=== PATIENT | female | born 1985 | race Caucasian/White ===

== ENCOUNTER 2020-08-01 11:06 | Inpatient (IN) | payer BC ==
[2020-08-01] MEDS ORDERED: Sodium Chloride 0.9% 10 ML Syringe FLUSH PRN (11:51)
[2020-08-01] MEDS ORDERED: Nalbuphine 10 MG/1 ML Vial IVPUSH PRN (11:51)
[2020-08-01] MEDS ORDERED: Ondansetron 4 MG/2 ML SDV IVPUSH PRN ×2 (11:51→13:47)
[2020-08-01] MEDS ORDERED: Ampicillin 2 GM in Sodium Chloride 0.9% 100 ML IV ONE (12:00)
[2020-08-01] MEDS ORDERED: Oxytocin/Lactated Ringers 10 UNIT/1,000 ML BAG IV SCH ×2 (12:00)
[2020-08-01] MEDS: Lactated Ringers 1,000 ML IV SCH ×5 (12:30→20:00)
--- NOTE | 2020-08-01 12:49 | PCM.LDHP ---
L&D History of Present Illness - General Date of Service: 08/01/20 Admit Problem/Dx: Patient Status Order with Admit Dx/Problem 08/01/20 11:21 Patient Status [ADT] Routine 08/01/20 11:51 Patient Status [ADT] Routine Admission Diagnosis/Problem Admission Diagnosis/Problem Source of Information: Patient History Limitations: Reports: No Limitations - History of Present Illness Introduction:: Queenie Tesfaye is a GBS + A+ 35 year old x 1 for breech presentation x 1 female at 38-6 weeks gestation age (GRETA 08/09/20) by early US and LMP who presents today for signs of labor. She reports contractions that began at 0645 that have been increasing in strength and frequency. She reports bloody show, but denies rodger bleeding. She denies leaking of fluid. Present Illness Comments:: Queenie Tesfaye is a GBS + A+ 35 year old x 1 for breech presentation x 1 female at 38-6 weeks gestation age (GRETA 08/09/20) by early US and LMP who presents today for signs of labor. Patient has received routine care and denies any complications during her . She received the Tdap vaccine on 06/02/20 and her flu vaccie 03/08/20. OBGYN History 03/31/15: with vaccum extraction following induction due to preeclampsia; male infant weighing 7 lbs 0 ounces, "Omid" 11/20/18: for breech presentation following failed cephalic version with tight nuchal cord and true knot. Female weighing 8 lbs 15 ounces, "Mejia" G3: current labs: Blood type: A+ Antibody screen: Negative Rubella status: immune Hepatitis B surface antigen: unknown RPR: negative HIV: negative Gonorrhea: Negative Chlamydia: negative Anatomy US: 03/10/20 with follow up 04/08/20 Normal growth, BRAD, placental position, anatomy One hour glucose tolerance test: 82 Second trimester hematocrit/hemoglobin: 12.6 Platelets: 341,000 GBS status: positive - Related Data Allergies/Adverse Reactions: Allergies Allergy/AdvReac Type Severity Reaction Status Date / Time No Known Allergies Allergy Verified 08/01/20 11:21 Home Medications: Home Meds Acetaminophen/oxyCODONE [Percocet 325-5 MG] 2 tab PO Q4H PRN tablet 11/22/18 [Rx] Ibuprofen [Motrin] 800 mg PO Q8H PRN tablet 11/22/18 [Rx] Pnv No.95/Ferrous Fum/Folic AC [Prenavite Tablet] 1 each PO DAILY #100 tablet 11/22/18 [Rx] Past Medical History - Past Health History Medical/Surgical History: Denies 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: Social & Family History - Family History Family Medical History: No Pertinent Family History - Caffeine Use Caffeine Use: Reports: None H&P Review of Systems - Review of Systems: Review Of Systems: See Below General: Reports: No Symptoms HEENT: Reports: No Symptoms Pulmonary: Reports: No Symptoms Cardiovascular: Reports: No Symptoms Gastrointestinal: Reports: No Symptoms Genitourinary: Reports: No Symptoms Musculoskeletal: Reports: No Symptoms Skin: Reports: No Symptoms Psychiatric: Reports: No Symptoms Neurological: Reports: No Symptoms L&D Exam - Exam Exam: See Below - Vital Signs Vital Signs: Last Vital Signs Temp 98.3 F 08/01/20 11:21 Pulse 80 08/01/20 11:21 Resp 16 08/01/20 11:21 BP 141/80 H 08/01/20 11:21 Pulse Ox 99 08/01/20 11:21 Weight: 223 lb - OB Specific Contraction Intensity: Moderate to Strong Movement: Active Heart Tones: Present - Bender Score Bender Score Cervix Position: Midposition Bender Score Consistency: Soft Bender Score Effacement: >80% Bender Score Dilation: 3-4 cm Bender Score 's Station: -2 Bender Score Total: 9 - Exam General: Alert, Oriented HEENT: Conjunctiva Clear, EOMI Lungs: Clear to Auscultation, Normal Respiratory Effort Cardiovascular: Regular Rate, Regular Rhythm GI/Abdominal Exam: Normal Bowel Sounds, Soft Genitourinary: Normal external exam Extremities: Normal Inspection, No Pedal Edema, Normal Capillary Refill Skin: Warm, Dry, Intact Psychiatric: Alert, Normal Affect, Normal Mood - Patient Data Lab Results Last 24 hrs: Laboratory Results - last 24 hr 08/01/20 Range/Units 12:12 WBC 13.44 H (3.98-10.04) K/mm3 RBC 4.07 (3.98-5.22) M/mm3 Hgb 12.1 (11.2-15.7) gm/dl Hct 36.2 (34.1-44.9) % MCV 88.9 D (79.4-94.8) fl MCH 29.7 (25.6-32.2) pg MCHC 33.4 (32.2-35.5) g/dl RDW Std Deviation 46.4 H (36.4-46.3) fL Plt Count 219 D (182-369) K/mm3 MPV 10.5 (9.4-12.3) fl Neut % (Auto) 85.2 H (34.0-71.1) % Lymph % (Auto) 8.0 L (19.3-51.7) % [place] % (Auto) 6.0 (4.7-12.5) % Eos % (Auto) 0.2 L (0.7-5.8) Baso % (Auto) 0.1 (0.1-1.2) % Neut # (Auto) 11.45 H (1.56-6.13) K/mm3 Lymph # (Auto) 1.08 L (1.18-3.74) K/mm3 [place] # (Auto) 0.80 H (0.24-0.36) K/mm3 Eos # (Auto) 0.03 L (0.04-0.36) K/mm3 Baso # (Auto) 0.01 (0.01-0.08) K/mm3 Manual Slide Review Abnormal smear Result Diagrams: 08/01/20 12:12 - Problem List (1) 38 weeks gestation of SNOMED Code(s): 99561720 ICD Code: Z3A.38 - 38 WEEKS GESTATION OF Status: Acute Current Visit: Yes (2) Group B streptococcal carriage complicating SNOMED Code(s): 821613088730887 ICD Code: O99.820 - STREPTOCOCCUS B CARRIER STATE COMPLICATING Status: Acute Current Visit: Yes (3) History of pre-eclampsia SNOMED Code(s): 596567118810896 ICD Code: Z87.59 - PERSONAL HISTORY OF COMP OF PREG, CHLDBRTH AND THE PUERP Status: Acute Current Visit: Yes (4) History of SNOMED Code(s): 135460865 ICD Code: Z98.891 - HISTORY OF UTERINE SCAR FROM PREVIOUS SURGERY Status: Acute Current Visit: Yes Problem List Initiated/Reviewed/Updated: Yes Orders Last 24hrs: Active Orders 24 hr Category Date Time Status Patient Status [ADT] Routine ADT 08/01/20 11:51 Active Activity as Tolerated [RC] PFP Care 08/01/20 11:51 Active Communication Order [RC] ASDIRECTED Care 08/01/20 11:51 Active Heart Tones [RC] ASDIRECTED Care 08/01/20 11:51 Active Non Stress Test [RC] PER UNIT ROUTINE Care 08/01/20 11:21 Active Notify Provider [RC] PFP Care 08/01/20 11:51 Active Notify Provider [RC] PRN Care 08/01/20 11:51 Active Peripheral IV Care [RC] . DIRECTED Care 08/01/20 11:51 Active Pump Management, Intrathecal [RC] ASDIRECTED Care 08/01/20 11:52 Active Vital Signs [RC] PER UNIT ROUTINE Care 08/01/20 11:21 Active Vital Signs [RC] PER UNIT ROUTINE Care 08/01/20 11:51 Active Regular Diet [DIET] Diet 08/01/20 Lunch Active CORONAVIRUS COVID-19 WENDY [MOLEC] Stat Lab 08/01/20 12:15 Received HEP C VIRUS AB [REF] Stat Lab 08/01/20 12:12 Received RAPID PLASMA REAGIN,RPR [CHEM] Routine Lab 08/01/20 12:12 Received TYPE AND SCREEN [BBK] Stat Lab 08/01/20 12:12 Received Ampicillin 1 gm Med 08/01/20 16:00 Active Sodium Chloride 0.9% [Normal Saline] 100 ml IV Q4H Lactated Ringers [Ringers, Lactated] 1,000 ml Med 08/01/20 12:00 Active IV ASDIRECTED Nalbuphine [Nubain] Med 08/01/20 11:51 Active 10 mg IVPUSH Q2H PRN Ondansetron [Zofran] Med 08/01/20 11:51 Active 4 mg IVPUSH Q4H PRN Oxytocin/Lactated Ringers [Pitocin in LR 10 Units/1,000 Med 08/01/20 12:00 Active ML] 10 unit in 1,000 ml IV .CONTINUOUS Oxytocin/Lactated Ringers [Pitocin in LR 10 Units/1,000 Med 08/01/20 12:00 Active ML] 10 unit in 1,000 ml IV TITRATE Sodium Chloride 0.9% [Saline Flush] Med 08/01/20 11:51 Active 10 ml FLUSH ASDIRECTED PRN Electronic Heart Tones Ext w TOCO [WOMSER] Oth 08/01/20 11:51 Ordered Routine Electronic Heart Tones Internal [WOMSER] Per Unit Oth 08/01/20 11:51 Ordered Routine Peripheral IV Insertion Adult [OM.PC] Routine Oth 08/01/20 11:51 Ordered Resuscitation Status Routine Resus Stat 08/01/20 11:21 Ordered Medication Orders Lactated Ringer's (Ringers, Lactated) 1,000 mls @ 100 mls/hr IV ASDIRECTED BLNACA Last Admin: 08/01/20 12:30 Dose: 100 mls/hr Documented by: DECKAMB Ampicillin Sodium 1 gm/ Sodium (Chloride) 100 mls @ 200 mls/hr IV Q4H BLANCA Oxytocin/Lactated Ringer's (Pitocin In Lr 10 Units/1,000 Ml) 10 unit in 1,000 mls @ 12 mls/hr IV TITRATE BLANCA; Protocol Oxytocin/Lactated Ringer's (Pitocin In Lr 10 Units/1,000 Ml) 10 unit in 1,000 mls @ 500 mls/hr IV .CONTINUOUS BLANCA Nalbuphine HCl (Nalbuphine 10 Mg/1 Ml Vial) 10 mg IVPUSH Q2H PRN PRN Reason: Pain Ondansetron HCl (Ondansetron 4 Mg/2 Ml Sdv) 4 mg IVPUSH Q4H PRN PRN Reason: Nausea/Vomiting Sodium Chloride (Sodium Chloride 0.9% 10 Ml Syringe) 10 ml FLUSH ASDIRECTED PRN PRN Reason: Keep Vein Open Assessment/Plan Comment:: Queenie Tesfaye is a GBS + A+ 35 year old x 1 for breech presentation x 1 female at 38-6 weeks gestation age (GRETA 08/09/20) by early US and LMP who presents today for signs of labor. Patient desires a TOLAC. AROM was performed; scant blood tinged fluid noted. Mother and baby tolerated the procedure well. 1. Active labor - desires TOLAC. Risks and benefits discussed with patient. Head position confirmed with bedside US. Augmentation of labor with AROM and Pitocin as indicated 2. GBS + - 2 mg ampicillin loading dose with 1 mg q 4 hours 3. A+ with negative antibody screen 4. Rubella immune 5. Continuous monitoring 6. Activity as tolerated 7. Small amounts of regular diet 8. Pain management as patient desires 9. Plans to breastfeed 10. Anticipate vaginal delivery unless otherwise indicated
[2020-08-01] MEDS ORDERED: fentaNYL 100 MCG/2 ML SDV EPIDUR PRN (13:47)
--- NOTE | 2020-08-01 13:49 | PCM.PREANE ---
Preanesthetic Assessment - Procedure Proposed Procedure: Epidural - Anesthesia/Transfusion/Family Hx Anesthesia History: Prior Anesthesia Without Reaction Family History of Anesthesia Reaction: No Transfusion History: No Prior Transfusion(s) Intubation History: Unknown - Review of Systems General: No Symptoms Pulmonary: No Symptoms Cardiovascular: No Symptoms (History of preeclampsia) Gastrointestinal: No Symptoms (GERD) Neurological: No Symptoms Other: Reports: None - Physical Assessment NPO Status Date: 08/01/20 NPO Status Time: 08:00 Vital Signs: Last Vital Signs Temp 36.8 C 08/01/20 11:21 Pulse 80 08/01/20 11:21 Resp 16 08/01/20 11:21 BP 141/80 H 08/01/20 11:21 Pulse Ox 99 08/01/20 11:21 Height: 1.6 m Weight: 101.151 kg ASA Class: 3 Mental Status: Alert & Oriented x3 Airway Class: Mallampati = 2 Dentition: Reports: Normal Dentition, Caries Thyro-Mental Finger Breadths: 3 Mouth Opening Finger Breadths: 3 ROM/Head Extension: Full Lungs: Clear to Auscultation, Normal Respiratory Effort Cardiovascular: Regular Rate, Regular Rhythm, No Murmurs - Lab Values: Laboratory Last Values WBC 13.44 K/mm3 (3.98-10.04) H 08/01/20 12:12 RBC 4.07 M/mm3 (3.98-5.22) 08/01/20 12:12 Hgb 12.1 gm/dl (11.2-15.7) 08/01/20 12:12 Hct 36.2 % (34.1-44.9) 08/01/20 12:12 MCV 88.9 fl (79.4-94.8) D 08/01/20 12:12 MCH 29.7 pg (25.6-32.2) 08/01/20 12:12 MCHC 33.4 g/dl (32.2-35.5) 08/01/20 12:12 RDW Std Deviation 46.4 fL (36.4-46.3) H 08/01/20 12:12 Plt Count 219 K/mm3 (182-369) D 08/01/20 12:12 MPV 10.5 fl (9.4-12.3) 08/01/20 12:12 Neut % (Auto) 85.2 % (34.0-71.1) H 08/01/20 12:12 Lymph % (Auto) 8.0 % (19.3-51.7) L 08/01/20 12:12 [place] % (Auto) 6.0 % (4.7-12.5) 08/01/20 12:12 Eos % (Auto) 0.2 (0.7-5.8) L 08/01/20 12:12 Baso % (Auto) 0.1 % (0.1-1.2) 08/01/20 12:12 Neut # (Auto) 11.45 K/mm3 (1.56-6.13) H 08/01/20 12:12 Lymph # (Auto) 1.08 K/mm3 (1.18-3.74) L 08/01/20 12:12 [place] # (Auto) 0.80 K/mm3 (0.24-0.36) H 08/01/20 12:12 Eos # (Auto) 0.03 K/mm3 (0.04-0.36) L 08/01/20 12:12 Baso # (Auto) 0.01 K/mm3 (0.01-0.08) 08/01/20 12:12 Manual Slide Review Abnormal smear 08/01/20 12:12 SARS-CoV-2 RNA (WENDY) Negative (NEGATIVE) 08/01/20 12:15 Blood Type A POSITIVE 08/01/20 12:12 Gel Antibody Screen Negative 08/01/20 12:12 Above labs reviewed and noted and within acceptable ranges to proceed with epidural if desired. 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: 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: Reports: Depression Other 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: after first baby Endocrine/Metabolic History: Reports: Obesity/BMI 30+ - SUBSTANCE USE Tobacco Use Status *Q: Never Tobacco User Second Hand Smoke Exposure: No Recreational Drug Use History: No - HOME MEDS Home Medications: Home Meds Acetaminophen/oxyCODONE [Percocet 325-5 MG] 2 tab PO Q4H PRN tablet 11/22/18 [Rx] Ibuprofen [Motrin] 800 mg PO Q8H PRN tablet 11/22/18 [Rx] Pnv No.95/Ferrous Fum/Folic AC [Prenavite Tablet] 1 each PO DAILY #100 tablet 11/22/18 [Rx] - CURRENT (IN HOUSE) MEDS Current Meds: Current Medications Lactated Ringer's (Ringers, Lactated) 1,000 mls @ 100 mls/hr IV ASDIRECTED BLANCA Last Infusion: 08/01/20 13:31 Dose: 0 mls/hr Documented by: Ampicillin Sodium 1 gm/ Sodium (Chloride) 100 mls @ 200 mls/hr IV Q4H BLANCA Oxytocin/Lactated Ringer's (Pitocin In Lr 10 Units/1,000 Ml) 10 unit in 1,000 mls @ 12 mls/hr IV TITRATE BLANCA; Protocol Oxytocin/Lactated Ringer's (Pitocin In Lr 10 Units/1,000 Ml) 10 unit in 1,000 mls @ 500 mls/hr IV .CONTINUOUS BLANCA Nalbuphine HCl (Nalbuphine 10 Mg/1 Ml Vial) 10 mg IVPUSH Q2H PRN PRN Reason: Pain Ondansetron HCl (Ondansetron 4 Mg/2 Ml Sdv) 4 mg IVPUSH Q4H PRN PRN Reason: Nausea/Vomiting Sodium Chloride (Sodium Chloride 0.9% 10 Ml Syringe) 10 ml FLUSH ASDIRECTED PRN PRN Reason: Keep Vein Open Discontinued Medications Ampicillin Sodium 2 gm/ Sodium (Chloride) 100 mls @ 200 mls/hr IV ONETIME ONE Stop: 08/01/20 12:29 Last Admin: 08/01/20 12:30 Dose: 200 mls/hr Documented by:
[2020-08-01] MEDS ORDERED: Bupivacaine/fentaNYL/NS 100 ML Bag EPIDUR SCH (14:00)
[2020-08-01] MEDS: ePHEDrine 50 MG/ML SDV IVPUSH PRN ×3 (14:41→15:16)
[2020-08-01] MEDS: Ampicillin 1 GM in Sodium Chloride 0.9% 100 ML IV SCH ×2 (16:40→20:00)
[2020-08-01] MEDS ORDERED: Bupivacaine 0.25% 10 ML SDV ONE (17:00)
[2020-08-01] MEDS ORDERED: ePHEDrine 50 MG/ML SDV ONE (17:00)
--- NOTE | 2020-08-01 18:30 | PCM.SN.2 ---
- Free Text/Narrative Note: Anesthesia Note: ([id number]) Placement of epidural 17 gauge tuohy resulted in wet tap. Catheter advanced and secured at 12 cm. Negative test dose noted, bolus of 5ml's of 0.25% marcaine given with negative aspiration, and negative heme. Patient responded with excellent pain control. Motor control lost on right leg, diminished but present on left leg. Patient B/P decreased to 60's systolic with ephedrine and phenylephrine administered and B/P returned to 110's/ 40-50's. Nurse instructed to maintain mean B/P at 70. No Spinal catheter infusion initiated. Nurse/and patient instructed to contact anesthesia for a spinal catheter rebolus if warranted. Patient and educated on inadvertent dural puncture and educated on potential need for blood patch in the event a post dural puncture headache presents itself. Post Delivery: Spinal catheter dc'd, tip in tact. Patient encouraged to drink caffeinated b everages, and IV ketorlac ordered per Dr. Porter. Anesthesia will continue to assess and check in on patient in the event a spinal headache occurs and a blood patch is warranted. Thank you, More CARLOS
--- NOTE | 2020-08-01 20:13 | PCM.SN.2 ---
- Free Text/Narrative Note: Anesthesia Note: Start: 1954 Stop: 1999 Patient dilated to 9cm. Patient c/o pain 01/20. Patient requests spinal catheter (inadvertent) rebolused for pain control. 2ml's of 1.5% lidocaine with 1:200,000 epi with 3ml's of 0.25% bupivacaine administered. Patient received excellent pain relief. 200mcg of phenylephrine given for symptomatic hypotension systolic in the 80's. Blood pressure returned to 110's and patient resting comfortably. Thank you, More CARLOS
[2020-08-01] MEDS ORDERED: Lidocaine 1% 50 ML MDV ONE (21:06)
--- NOTE | 2020-08-01 22:42 | PCM.SN.2 ---
- Free Text/Narrative Note: Queenie Tesfaye is a GBS + A+ 35 year old [id number] of x 1, for breech presentation x 1 female at 38-6 weeks gestation age (GRETA 08/09/20) by early US and LMP who presents today for signs of labor. She reports contractions that began at 0645 that have been increasing in strength and frequency. Babies heart tones were reassuring with contractions occurring every 3 to 5 minutes. She progressed steadily towards complete dilation. She had an epidural placed for labor analgesia with fair results. There were questions as to whether this was a wet tap. Patient became complete and pushed for approximately 30 minutes. She delivered a viable, sow, male with Apgars of 7 and 9, a weight of 4290 g (9 pounds 7.3 ounces) and a length of 22.0 inches at 2102 hrs. on 08/01/2020.. The patient had a moderate shoulder dystocia and the anterior shoulder was delivered with moderate posterior motion of the anterior shoulder, along with a sweeping finger movement bring the anterior shoulder forward. This was further accompanied by suprapubic pressure offered by labor and delivery nurse Carol. With this baby delivered was placed on mom's abdomen. The cord was clamped x2 and cut by the baby's Father Nghia. Patient was noted to have a second-degree perineal laceration. IV Pitocin was increased to 500 cc an hour per with Pitocin solution per protocol to facilitate increase in uterine tone and decrease likelihood of bleeding. Nose and mouth were bulb suction and the baby was taken to the warmer for further evaluation and resuscitation. The baby spontaneously cried and actually pinked up very well. No positive pressure ventilation was necessary. The placenta delivered in a Meek presentation at 2109 hrs., appeared intact and complete and was discarded per patient desire. The umbilical cord had 3 vessels present within it. The second-degree perineal laceration area was infiltrated with lidocaine 1% approximately 15 cc. I was then sutured in a routine fashion using 3-0 Monocryl suture. Patient tolerated this well. Patient plans to breast-feed. Estimated blood loss was 350 cc. Condition: Good.
[2020-08-01] MEDS ORDERED: Ketorolac 30 MG/ML SDV IVPUSH ONE ×2 (22:44→23:11)
[2020-08-01] MEDS ORDERED: Docusate Sodium 100 MG Cap PO PRN (23:11)
[2020-08-01] MEDS ORDERED: Benzocaine/Menthol 20%-0.5% Spray 56 GM Canister TOP PRN (23:11)
[2020-08-01] MEDS ORDERED: Acetaminophen 325 MG Tab PO PRN (23:11)
[2020-08-01] MEDS ORDERED: Witch Hazel Medicated Pads 40/Jar TOP PRN (23:11)
[2020-08-02] MEDS ORDERED: Lactated Ringers 1,000 ML IV SCH (01:00)
[2020-08-02] MEDS ORDERED: Lidocaine 1% 20 ML MDV INJECT ONE (01:06)
--- NOTE | 2020-08-02 01:28 | PCM.SN.2 ---
- Free Text/Narrative Note: Anesthesia Note: (Blood Patch) Start: 0143 Stop: 224 Patient presents with PDPH that is positional and patient requests treatment relief via blood patch. Risk/Benefits discussed, consent signed. Patient sitting up for procedure. (Sterile technique noted with sterile gloves, mask, and sterile drapes utilized) -Back cleansed with 3 betadine swabs. -L3-L4 Site localized with 4ml's of 1% lidocaine. -17 g tuohy epidural needle advanced with MARGARET noted at 6.5 cm. -20ml's of autologous blood obtained from patient with strict aseptic/sterile technique noted. -20ml's of autologous blood injected via epidural needle. Patient positioned supine and instructed to lay flat for 2 hours, and continue to rest for the remaining part of night. Patient encouraged to rest tomorrow as well, with minimal exertion and movement encouraged. Thank you, More CARLOS
[2020-08-02] MEDS ORDERED: Lidocaine 1% 8 ML ONE (02:42)
[2020-08-02] MEDS: Ibuprofen 600 MG Tab PO PRN ×4 (04:43→21:38)
--- NOTE | 2020-08-02 07:35 | PCM48HPAN ---
Post Anesthesia Note - EVALUATION WITHIN 48HRS OF ANESTHETIC Vital Signs in Normal Range: Yes Patient Participated in Evaluation: Yes Respiratory Function Stable: Yes Airway Patent: Yes Cardiovascular Function Stable: Yes Hydration Status Stable: Yes Pain Control Satisfactory: Yes Nausea and Vomiting Control Satisfactory: Yes Mental Status Recovered: Yes Vital Signs: Last Vital Signs Temp 36.9 C 08/02/20 02:24 Pulse 92 08/02/20 02:24 Resp 16 08/02/20 02:24 BP 124/69 08/02/20 02:24 Pulse Ox 98 08/02/20 02:24 - COMMENTS/OBSERVATIONS Free Text/Narrative:: Queenie developed a positional headache following a known post dural puncture for epidural placement. Blood patch was administered at 0143 last evening. She was able to get some rest last evening. She did get up this morning and noticed the headache but did feel like it was better than before the blood patch. Education provided for Queenie to dink lots of fluids today, try caffeine to help with the headache, tylenol/motrin, and rest when possible. We will continue to monitor for improvement in headache symptoms. Questions answered at this time.
--- NOTE | 2020-08-02 10:21 | PCM.PNPP ---
- General Info Date of Service: 08/02/20 Subjective Update: No complaints of headache. Doing well. Some cramping. Nursing well. - Review of Systems General: Reports: No Symptoms HEENT: Reports: No Symptoms Pulmonary: Reports: No Symptoms Cardiovascular: Reports: No Symptoms Gastrointestinal: Reports: No Symptoms Genitourinary: Reports: No Symptoms Musculoskeletal: Reports: No Symptoms Skin: Reports: No Symptoms Neurological: Reports: No Symptoms Psychiatric: Reports: No Symptoms - General Info Date of Service: 08/02/20 - Patient Data Vital Signs - Most Recent: Last Vital Signs Temp 36.9 C 08/02/20 02:24 Pulse 92 08/02/20 02:24 Resp 16 08/02/20 02:24 BP 124/69 08/02/20 02:24 Pulse Ox 98 08/02/20 02:24 Weight - Most Recent: 101.151 kg I&O - Last 24 Hours: Intake & Output 08/01/20 08/02/20 08/02/20 22:59 06:59 14:59 Intake Total 6300 Output Total 1100 458 Balance -1100 5842 Lab Results - Last 24 Hours: Laboratory Results - last 24 hr 08/01/20 08/01/20 08/01/20 Range/Units 12:12 12:12 12:12 WBC 13.44 H (3.98-10.04) K/mm3 RBC 4.07 (3.98-5.22) M/mm3 Hgb 12.1 (11.2-15.7) gm/dl Hct 36.2 (34.1-44.9) % MCV 88.9 D (79.4-94.8) fl MCH 29.7 (25.6-32.2) pg MCHC 33.4 (32.2-35.5) g/dl RDW Std Deviation 46.4 H (36.4-46.3) fL Plt Count 219 D (182-369) K/mm3 MPV 10.5 (9.4-12.3) fl Neut % (Auto) 85.2 H (34.0-71.1) % Lymph % (Auto) 8.0 L (19.3-51.7) % [place] % (Auto) 6.0 (4.7-12.5) % Eos % (Auto) 0.2 L (0.7-5.8) Baso % (Auto) 0.1 (0.1-1.2) % Neut # (Auto) 11.45 H (1.56-6.13) K/mm3 Lymph # (Auto) 1.08 L (1.18-3.74) K/mm3 [place] # (Auto) 0.80 H (0.24-0.36) K/mm3 Eos # (Auto) 0.03 L (0.04-0.36) K/mm3 Baso # (Auto) 0.01 (0.01-0.08) K/mm3 Manual Slide Review Abnormal smear RPR Non-reactive (NONREACTIVE) SARS-CoV-2 RNA (WENDY) (NEGATIVE) Blood Type A POSITIVE Gel Antibody Screen Negative 08/01/20 Range/Units 12:15 WBC (3.98-10.04) K/mm3 RBC (3.98-5.22) M/mm3 Hgb (11.2-15.7) gm/dl Hct (34.1-44.9) % MCV (79.4-94.8) fl MCH (25.6-32.2) pg MCHC (32.2-35.5) g/dl RDW Std Deviation (36.4-46.3) fL Plt Count (182-369) K/mm3 MPV (9.4-12.3) fl Neut % (Auto) (34.0-71.1) % Lymph % (Auto) (19.3-51.7) % [place] % (Auto) (4.7-12.5) % Eos % (Auto) (0.7-5.8) Baso % (Auto) (0.1-1.2) % Neut # (Auto) (1.56-6.13) K/mm3 Lymph # (Auto) (1.18-3.74) K/mm3 [place] # (Auto) (0.24-0.36) K/mm3 Eos # (Auto) (0.04-0.36) K/mm3 Baso # (Auto) (0.01-0.08) K/mm3 Manual Slide Review RPR (NONREACTIVE) SARS-CoV-2 RNA (WENDY) Negative (NEGATIVE) Blood Type Gel Antibody Screen Med Orders - Current: Current Medications Acetaminophen (Acetaminophen 325 Mg Tab) 650 mg PO Q4H PRN PRN Reason: mild pain or fever Benzocaine/Menthol (Benzocaine/Menthol 20%-0.5% [place] 56 Gm Canister) 0 gm TOP ASDIRECTED PRN PRN Reason: Perineal Comfort Measure Last Admin: 08/01/20 23:23 Dose: 1 can Documented by: Docusate Sodium (Docusate Sodium 100 Mg Cap) 100 mg PO BID PRN PRN Reason: Constipation Lactated Ringer's (Ringers, Lactated) 1,000 mls @ 100 mls/hr IV ASDIRECTED [facility] Last Admin: 08/02/20 01:24 Dose: 100 mls/hr Documented by: Ibuprofen (Ibuprofen 600 Mg Tab) 600 mg PO Q4H PRN PRN Reason: Mild pain or fever Last Admin: 08/02/20 10:18 Dose: 600 mg Documented by: Doron Gregg (Doron Gregg Medicated Pads 40/Jar) 1 pad TOP ASDIRECTED PRN PRN Reason: Perineal Comfort Measure Last Admin: 08/01/20 23:24 Dose: 1 tub Documented by: Discontinued Medications Ephedrine Sulfate (Ephedrine 50 Mg/Ml Sdv) 5 mg IVPUSH ASDIRECTED PRN PRN Reason: Hypotension Last Admin: 08/01/20 15:16 Dose: 5 mg Documented by: Fentanyl (Fentanyl 100 Mcg/2 Ml Sdv) 100 mcg EPIDUR Q3H PRN PRN Reason: Pain Last Admin: 08/01/20 14:03 Dose: 100 mcg Documented by: Fentanyl/Bupivacaine HCl (Bupivacaine/Fentanyl/Ns 100 Ml Bag) 100 ml EPIDUR ASDIRECTED [facility] Last Admin: 08/01/20 14:03 Dose: 100 ml Documented by: Lactated Ringer's (Ringers, Lactated) 1,000 mls @ 100 mls/hr IV ASDIRECTED [facility] Last Admin: 08/01/20 20:00 Dose: 125 mls/hr Documented by: Ampicillin Sodium 2 gm/ Sodium (Chloride) 100 mls @ 200 mls/hr IV ONETIME ONE Stop: 08/01/20 12:29 Last Admin: 08/01/20 12:30 Dose: 200 mls/hr Documented by: Ampicillin Sodium 1 gm/ Sodium (Chloride) 100 mls @ 200 mls/hr IV Q4H [facility] Last Admin: 08/01/20 20:00 Dose: 200 mls/hr Documented by: Oxytocin/Lactated Ringer's (Pitocin In Lr 10 Units/1,000 Ml) 10 unit in 1,000 mls @ 12 mls/hr IV TITRATE BLANCA; Protocol Oxytocin/Lactated Ringer's (Pitocin In Lr 10 Units/1,000 Ml) 10 unit in 1,000 mls @ 500 mls/hr IV .CONTINUOUS BLANCA Last Admin: 08/01/20 21:02 Dose: 500 mls/hr Documented by: Lidocaine HCl (Xylocaine-Mpf 1%) Confirm Administered Dose 8 mls @ as directed .ROUTE .STK-MED ONE Stop: 08/02/20 02:43 Ketorolac Tromethamine (Ketorolac 30 Mg/Ml Sdv) 30 mg IVPUSH ONETIME ONE Stop: 08/01/20 22:45 Last Admin: 08/01/20 23:08 Dose: 30 mg Documented by: Lidocaine HCl (Lidocaine 1% 50 Ml Mdv) Confirm Administered Dose 50 ml .ROUTE .STK-MED ONE Stop: 08/01/20 21:07 Last Admin: 08/02/20 04:46 Dose: Not Given Documented by: Lidocaine HCl (Lidocaine 1% 20 Ml Mdv) 50 ml INJECT ONETIME ONE Stop: 08/02/20 01:07 Last Admin: 08/01/20 21:10 Dose: 10 ml Documented by: Miscellaneous Medication (Phenylephrine Hcl In 0.9% Nacl 1 Mg/10 Ml Syringe) 0.1 mg IVPUSH Q10M PRN PRN Reason: Hypotension Last Admin: 08/01/20 14:54 Dose: 0.1 mg Documented by: Nalbuphine HCl (Nalbuphine 10 Mg/1 Ml Vial) 10 mg IVPUSH Q2H PRN PRN Reason: Pain Ondansetron HCl (Ondansetron 4 Mg/2 Ml Sdv) 4 mg IVPUSH Q4H PRN PRN Reason: Nausea/Vomiting Ondansetron HCl (Ondansetron 4 Mg/2 Ml Sdv) 4 mg IVPUSH ONETIME PRN PRN Reason: Nausea/Vomiting Sodium Chloride (Sodium Chloride 0.9% 10 Ml Syringe) 10 ml FLUSH ASDIRECTED PRN PRN Reason: Keep Vein Open - Interaction Infant Disposition, : [place] in Room with Family Infant Interaction: Holding Support Person: - Recovery Exam Fundal Tone: Firm Fundal Level: 1 Fingerbreadths Below Umbilicus Fundal Placement: Midline Lochia Amount: Small Lochia Color: Rubra/Red Episiotomy/Laceration: Approximated Bladder Status: Voiding - Exam General: Alert, Oriented HEENT: Pupils Equal Neck: Supple Lungs: Clear to Auscultation, Normal Respiratory Effort Cardiovascular: Regular Rate, Regular Rhythm GI/Abdominal Exam: Normal Bowel Sounds, Soft, Non-Tender, No Organomegaly, No Distention, No Abnormal Bruit, No Mass, Pelvis Stable Extremities: Normal Inspection, Normal Range of Motion, Non-Tender, No Pedal Edema, Normal Capillary Refill Neurological: No New Focal Deficit Psy/Mental Status: Alert, Normal Affect, Normal Mood - Problem List Review Problem List Initiated/Reviewed/Updated: Yes - Assessment Assessment:: PPD1 doing great. Minimal residual spinal headache when up. - Plan Plan:: Queenie Tesfaye is a GBS + A+ 35 year old x 1 for breech presentation x 1 female at 38-6 weeks gestation age ([place]TA 08/09/20) by early US and LMP who presents today for signs of labor. Patient desired a TOLAC. S/P . Doing well. No complaints. Home tomorrow
--- NOTE | 2020-08-03 08:58 | PCM48HPAN ---
Post Anesthesia Note - EVALUATION WITHIN 48HRS OF ANESTHETIC Vital Signs in Normal Range: Yes Patient Participated in Evaluation: Yes Respiratory Function Stable: Yes Airway Patent: Yes Cardiovascular Function Stable: Yes Hydration Status Stable: Yes Pain Control Satisfactory: Yes Nausea and Vomiting Control Satisfactory: Yes Mental Status Recovered: Yes Vital Signs: Last Vital Signs Temp 36.9 C 08/03/20 03:51 Pulse 67 08/03/20 03:51 Resp 14 08/03/20 03:51 BP 120/69 08/03/20 03:51 Pulse Ox 97 08/03/20 03:51 - COMMENTS/OBSERVATIONS Free Text/Narrative:: No c/o headache noted. Patient sitting up in bed, and planning on getting discharged today. Thank you, More CARLOS
--- NOTE | 2020-08-03 09:08 | PCM.DCSUM1 ---
Discharge Summary - Hospital Course Free Text/Narrative:: [facility] Provider Simple Note Patient Name: QUEENIE TESFAYE Date of : 89 Patient Status: Inpatient Attending Provider: Omid Porter Date: 08/01/20 22:36 Initialization Date: 08/01/20 22:36 - Free Text/Narrative Note: Queenie Tesfaye is a GBS + A+ 35 year old [id number] of x 1, for breech presentation x 1 female at 38-6 weeks gestation age ([place]TA 08/09/20) by early US and LMP who presents today for signs of labor. She reports contractions that began at 0645 that have been increasing in strength and frequency. Babies heart tones were reassuring with contractions occurring every 3 to 5 minutes. She progressed steadily towards complete dilation. She had an epidural placed for labor analgesia with fair results. There were questions as to whether this was a wet tap. Patient became complete and pushed for approximately 30 minutes. She delivered a viable, sow, male with Apgars of 7 and 9, a weight of 4290 g (9 pounds 7.3 ounces) and a length of 22.0 inches at 2102 hrs. on 08/01/2020.. The patient had a moderate shoulder dystocia and the anterior shoulder was delivered with moderate posterior motion of the anterior shoulder, along with a sweeping finger movement bring the anterior shoulder forward. This was further accompanied by suprapubic pressure offered by labor and delivery nurse Carol. With this baby delivered was placed on mom's abdomen. The cord was clamped x2 and cut by the baby's Father Nghia. Patient was noted to have a second-degree perineal laceration. IV Pitocin was increased to 500 cc an hour per with Pitocin solution per protocol to facilitate increase in uterine tone and decrease likelihood of bleeding. Nose and mouth were bulb suction and the baby was taken to the warmer for further evaluation and resuscitation. The baby spontaneously cried and actually pinked up very well. No positive pressure ventilation was necessary. The placenta delivered in a Meek presentation at 2109 hrs., appeared intact and complete and was discarded per patient desire. The umbilical cord had 3 vessels present within it. The second-degree perineal laceration area was infiltrated with lidocaine 1% approximately 15 cc. I was then sutured in a routine fashion using 3-0 Monocryl suture. Patient tolerated this well. Patient plans to breast-feed. Estimated blood loss was 350 cc. Condition: Good. HPI Initial Comments: [facility] Provider Simple Note Patient Name: QUEENIE TESFAYE Date of : 89 Patient Status: Inpatient Attending Provider: Omid Porter Date: 08/01/20 22:36 Initialization Date: 08/01/20 22:36 - Free Text/Narrative Note: Queenie Tesfaye is a GBS + A+ 35 year old [id number] of x 1, for breech presentation x 1 female at 38-6 weeks gestation age ([place] 08/09/20) by early US and LMP who presents today for signs of labor. She reports contractions that began at 0645 that have been increasing in strength and frequency. Babies heart tones were reassuring with contractions occurring every 3 to 5 minutes. She progressed steadily towards complete dilation. She had an epidural placed for labor analgesia with fair results. There were questions as to whether this was a wet tap. Patient became complete and pushed for approximately 30 minutes. She delivered a viable, sow, male with Apgars of 7 and 9, a weight of 4290 g (9 pounds 7.3 ounces) and a length of 22.0 inches at 2102 hrs. on 08/01/2020.. The patient had a moderate shoulder dystocia and the anterior shoulder was delivered with moderate posterior motion of the anterior shoulder, along with a sweeping finger movement bring the anterior shoulder forward. This was further accompanied by suprapubic pressure offered by labor and delivery nurse Carol. With this baby delivered was placed on mom's abdomen. The cord was clamped x2 and cut by the baby's Father Nghia. Patient was noted to have a second-degree perineal laceration. IV Pitocin was increased to 500 cc an hour per with Pitocin solution per protocol to facilitate increase in uterine tone and decrease likelihood of bleeding. Nose and mouth were bulb suction and the baby was taken to the warmer for further evaluation and resuscitation. The baby spontaneously cried and actually pinked up very well. No positive pressure ventilation was necessary. The placenta delivered in a Meek presentation at 2109 hrs., appeared intact and complete and was discarded per patient desire. The umbilical cord had 3 vessels present within it. The second-degree perineal laceration area was infiltrated with lidocaine 1% approximately 15 cc. I was then sutured in a routine fashion using 3-0 Monocryl suture. Patient tolerated this well. Patient plans to breast-feed. Estimated blood loss was 350 cc. Condition: Good. Brief History: [facility] . Provider Simple Note. Patient Name: QUEENIE TESFAYE SULucasical Record Number: [id number]. Date of : 89Patient Status: Inpatient. Attending Provider: Omid Porter FAccount Number: [id number]. Date: 08/01/20 22:36Initialization Date: 08/01/20 22:36. - Free Text/Narrative. Note: Queenie Tesfaye is a GBS + A+ 35 year old [id number] of x 1, for breech presentation x 1 female at 38- 6 weeks gestation age ([place] 08/09/20) by early US and LMP who presents today for signs of labor. She reports contractions that began at 0645 that have been increasing in strength and frequency. Babies heart tones were reassuring with contractions occurring every 3 to 5 minutes. She progressed steadily towards complete dilation. She had an epidural placed for labor analgesia with fair results. There were questions as to whether this was a wet tap. Patient became complete and pushed for approximately 30 minutes. She delivered a viable, sow, male infant with Apgars of 7 and 9, a weight of 4290 g (9 pounds 7.3 ounces) and a length of 22.0 inches at 2102 hrs. on 08/01/2020.. The patient had a moderate shoulder dystocia and the anterior shoulder was delivered with moderate posterior motion of the anterior shoulder, along with a sweeping finger movement bring the anterior shoulder forward. This was further accompanied by suprapubic pressure offered by labor and delivery nurse Carol. With this baby delivered was placed on mom's abdomen. The cord was clamped x2 and cut by the baby's Father Nghia. Patient was noted to have a second-degree perineal laceration. IV Pitocin was increased to 500 cc an hour per with Pitocin solution per protocol to facilitate increase in uterine tone and decrease likelihood of bleeding. Nose and mouth were bulb suction and the baby was taken to the warmer for further evaluation and resuscitation. The baby spontaneously cried and actually pinked up very well. No positive pressure ventilation was necessary. The placenta delivered in a Meek presentation at 2109 hrs., appeared intact and complete and was discarded per patient desire. The umbilical cord had 3 vessels present within it. The second-degree perineal laceration area was infiltrated with lidocaine 1% approximately 15 cc. I was then sutured in a routine fashion using 3-0 Monocryl suture. Patient tolerated this well. Patient plans to breast-feed. Estimated blood loss was 350 cc. Co ndition: Good. Diagnosis: Stroke: No - Discharge Data Discharge Date: 08/03/20 Discharge Disposition: Home, Self-Care 01 Condition: Good - Referral to Home Health Primary Care Physician: Chioma Banda NP - Discharge Diagnosis/Problem(s) (1) Second degree perineal laceration during delivery SNOMED Code(s): 0920665 ICD Code: O70.1 - SECOND DEGREE PERINEAL LACERATION DURING DELIVERY Status: Acute Current Visit: Yes (2) Shoulder dystocia during labor and delivery, delivered SNOMED Code(s): 856815462, 756184004 ICD Code: O66.0 - OBSTRUCTED LABOR DUE TO SHOULDER DYSTOCIA Status: Acute Current Visit: Yes (3) 38 weeks gestation of SNOMED Code(s): 44354054 ICD Code: Z3A.38 - 38 WEEKS GESTATION OF Status: Acute Current Visit: Yes (4) Group B streptococcal carriage complicating SNOMED Code(s): 006297237432939 ICD Code: O99.820 - STREPTOCOCCUS B CARRIER STATE COMPLICATING Status: Acute Current Visit: Yes (5) History of SNOMED Code(s): 066328073 ICD Code: Z98.891 - HISTORY OF UTERINE SCAR FROM PREVIOUS SURGERY Status: Acute Current Visit: Yes (6) History of pre-eclampsia SNOMED Code(s): 662266653626306 ICD Code: Z87.59 - PERSONAL HISTORY OF COMP OF PREG, CHLDBRTH AND THE PUERP Status: Acute Current Visit: Yes - Patient Summary/Data Complications: none Consults: none Hospital Course: uneventful - Patient Instructions Diet: Usual Diet as Tolerated Driving: Do Not Drive (X2 weeks) Showering/Bathing: May Shower Notify Provider of: Fever, Increased Pain, Swelling and Redness, Drainage, Nausea and/or Vomiting - Discharge Plan *PRESCRIPTION DRUG MONITORING PROGRAM REVIEWED*: Not Applicable *COPY OF PRESCRIPTION DRUG MONITORING REPORT IN PATIENT CHIRAG: Not Applicable Home Medications: Home Meds Pnv No.95/Ferrous Fum/Folic AC [ Vitamins Tablet] 1 each PO DAILY #100 tablet 11/22/18 [Rx] Acetaminophen [Tylenol] 650 mg PO Q6H PRN tablet 08/03/20 [Rx] Benzocaine/Menthol [Dermoplast Pain Relief [place]] 1 spray TOP ASDIRECTED PRN canister 08/03/20 [Rx] Docusate Sodium [Colace] 100 mg PO BID PRN cap 08/03/20 [Rx] Ibuprofen [Motrin] 600 mg PO Q6H PRN tablet 08/03/20 [Rx] witch Darrell [Tucks] 1 pad TOP ASDIRECTED PRN pad 08/03/20 [Rx] Referrals: Omid Porter MD [Family Provider] - (Patient will call to make appointment to be seen by Dr. Porter in 2 weeks ) - Discharge Summary/Plan Comment DC Time >30 min.: No - Patient Data Vitals - Most Recent: Last Vital Signs Temp 98.4 F 08/03/20 03:51 Pulse 67 08/03/20 03:51 Resp 14 08/03/20 03:51 BP 120/69 08/03/20 03:51 Pulse Ox 97 08/03/20 03:51 Weight - Most Recent: 223 lb I&O - Last 24 hours: Intake & Output 08/02/20 08/03/20 08/03/20 22:59 06:59 14:59 Intake Total 360 Balance 360 Med Orders - Current: Current Medications Acetaminophen (Acetaminophen 325 Mg Tab) 650 mg PO Q4H PRN PRN Reason: mild pain or fever Benzocaine/Menthol (Benzocaine/Menthol 20%-0.5% [place] 56 Gm Canister) 0 gm TOP ASDIRECTED PRN PRN Reason: Perineal Comfort Measure Last Admin: 08/01/20 23:23 Dose: 1 can Documented by: Docusate Sodium (Docusate Sodium 100 Mg Cap) 100 mg PO BID PRN PRN Reason: Constipation Last Admin: 08/02/20 21:38 Dose: 100 mg Documented by: Lactated Ringer's (Ringers, Lactated) 1,000 mls @ 100 mls/hr IV ASDIRECTED COUNT INCLUDES THE [facility] Last Admin: 08/02/20 01:24 Dose: 100 mls/hr Documented by: Ibuprofen (Ibuprofen 600 Mg Tab) 600 mg PO Q4H PRN PRN Reason: Mild pain or fever Last Admin: 08/02/20 21:38 Dose: 600 mg Documented by: Doron Gregg (Doron Gregg Medicated Pads 40/Jar) 1 pad TOP ASDIRECTED PRN PRN Reason: Perineal Comfort Measure Last Admin: 08/01/20 23:24 Dose: 1 tub Documented by: Discontinued Medications Bupivacaine HCl (Bupivacaine 0.25% 10 Ml Sdv) 10 ml .ROUTE .STK-MED ONE Stop: 08/01/20 17:01 Ephedrine Sulfate (Ephedrine 50 Mg/Ml Sdv) 5 mg IVPUSH ASDIRECTED PRN PRN Reason: Hypotension Last Admin: 08/01/20 15:16 Dose: 5 mg Documented by: Ephedrine Sulfate (Ephedrine 50 Mg/Ml Sdv) 50 mg .ROUTE .STK-MED ONE Stop: 08/01/20 17:01 Fentanyl (Fentanyl 100 Mcg/2 Ml Sdv) 100 mcg EPIDUR Q3H PRN PRN Reason: Pain Last Admin: 08/01/20 14:03 Dose: 100 mcg Documented by: Fentanyl/Bupivacaine HCl (Bupivacaine/Fentanyl/Ns 100 Ml Bag) 100 ml EPIDUR ASDIRECTED COUNT INCLUDES THE [facility] Last Admin: 08/01/20 14:03 Dose: 100 ml Documented by: Lactated Ringer's (Ringers, Lactated) 1,000 mls @ 100 mls/hr IV ASDIRECTED COUNT INCLUDES THE [facility] Last Admin: 08/01/20 20:00 Dose: 125 mls/hr Documented by: Ampicillin Sodium 2 gm/ Sodium (Chloride) 100 mls @ 200 mls/hr IV ONETIME ONE Stop: 08/01/20 12:29 Last Admin: 08/01/20 12:30 Dose: 200 mls/hr Documented by: Ampicillin Sodium 1 gm/ Sodium (Chloride) 100 mls @ 200 mls/hr IV Q4H [facility] Last Admin: 08/01/20 20:00 Dose: 200 mls/hr Documented by: Oxytocin/Lactated Ringer's (Pitocin In Lr 10 Units/1,000 Ml) 10 unit in 1,000 mls @ 12 mls/hr IV TITRATE BLANCA; Protocol Oxytocin/Lactated Ringer's (Pitocin In Lr 10 Units/1,000 Ml) 10 unit in 1,000 mls @ 500 mls/hr IV .CONTINUOUS BLANCA Last Admin: 08/01/20 21:02 Dose: 500 mls/hr Documented by: Lidocaine HCl (Xylocaine-Mpf 1%) Confirm Administered Dose 8 mls @ as directed .ROUTE .STK-MED ONE Stop: 08/02/20 02:43 Ketorolac Tromethamine (Ketorolac 30 Mg/Ml Sdv) 30 mg IVPUSH ONETIME ONE Stop: 08/01/20 22:45 Last Admin: 08/01/20 23:08 Dose: 30 mg Documented by: Lidocaine HCl (Lidocaine 1% 50 Ml Mdv) Confirm Administered Dose 50 ml .ROUTE .STK-MED ONE Stop: 08/01/20 21:07 Last Admin: 08/02/20 04:46 Dose: Not Given Documented by: Lidocaine HCl (Lidocaine 1% 20 Ml Mdv) 50 ml INJECT ONETIME ONE Stop: 08/02/20 01:07 Last Admin: 08/01/20 21:10 Dose: 10 ml Documented by: Miscellaneous Medication (Phenylephrine Hcl In 0.9% Nacl 1 Mg/10 Ml Syringe) 0.1 mg IVPUSH Q10M PRN PRN Reason: Hypotension Last Admin: 08/01/20 14:54 Dose: 0.1 mg Documented by: Miscellaneous Medication (Phenylephrine Hcl In 0.9% Nacl 1 Mg/10 Ml Syringe) 1 mg .ROUTE .STK-MED ONE Stop: 08/01/20 17:01 Nalbuphine HCl (Nalbuphine 10 Mg/1 Ml Vial) 10 mg IVPUSH Q2H PRN PRN Reason: Pain Ondansetron HCl (Ondansetron 4 Mg/2 Ml Sdv) 4 mg IVPUSH Q4H PRN PRN Reason: Nausea/Vomiting Ondansetron HCl (Ondansetron 4 Mg/2 Ml Sdv) 4 mg IVPUSH ONETIME PRN PRN Reason: Nausea/Vomiting Sodium Chloride (Sodium Chloride 0.9% 10 Ml Syringe) 10 ml FLUSH ASDIRECTED PRN PRN Reason: Keep Vein Open
[2020-08-03] MEDS: Ibuprofen 600 MG Tab PO PRN (13:42)
== END 2020-08-03 14:20 | disposition home or self-care (01) | DRG 560 ==
LOC: JD.OBCHECK 11:06 → JD.OB 11:12 → JD.OBCHECK 11:50 → JD.OB 11:51 → OBSVTOIN 21:02 → JD.OB 21:02
PROVIDERS: ADMIT Obstetrics & Gynecology; ATTEND Obstetrics & Gynecology
PROC: 10E0XZZ Delivery of Products of Conception, External Approach (ICD-10-PCS; principal; 2020-08-01)
PROC: 0KQM0ZZ Repair Perineum Muscle, Open Approach (ICD-10-PCS; 2020-08-01)
PROC: 3E0R3BZ Introduction of Anesthetic Agent into Spinal Canal, Percutaneous Approach (ICD-10-PCS; 2020-08-01)
PROC: 00HU33Z Insertion of Infusion Device into Spinal Canal, Percutaneous Approach (ICD-10-PCS; 2020-08-01)
DX: O99.824 Streptococcus B carrier state complicating childbirth (principal); Z3A.38 38 weeks gestation of pregnancy; Z37.0 Single live birth; O66.0 Obstructed labor due to shoulder dystocia; O70.1 Second degree perineal laceration during delivery; Z20.822 Contact with and (suspected) exposure to COVID-19
CPT/HCPCS: 01967; 36415; 51702; 59025; 59409; 62273; 85025; 86592; 86803; 86850; 86900; 86901; A9270-GY; J0290; J1885; J2370; J2590; J3010; J3490; J7120; U0002